=== PATIENT | female | born 1995 | race Two or more races ===

== ENCOUNTER 2016-10-06 16:55 | Emergency (ER) | payer SELFPAY ==
[~2016-10-06] VITALS: Ht 160 cm; Wt 59.0 kg
--- NOTE | 2016-10-06 17:00 | NUR ---
BIBSELF TO ED FOR RUQ ABDOMINAL PAIN, [place], 10/10 STARTED YESTERDAY NIGHT. PATIENT REPORTED NAUSEA AND VOMITTING X2. DENIES HEMATURIA NOR DYSURIA. SKIN IS WARM TO TOUCH AND NON DIAPHORETIC. AFEBRILE. VSS
[2016-10-06] MEDS ORDERED: IV NS 0.9% 1,000 ML BAG IV ONE (18:00)
[2016-10-06] MEDS ORDERED: MORPHINE SULFATE INJ 2 MG/ML DISP.SYRIN IV ONE ×2 (18:00→19:30)
[2016-10-06] MEDS ORDERED: ONDANSETRON HCL/PF - ER 4 MG/2 ML VIAL IV ONE ×2 (18:00→19:30)
[2016-10-06 18:06] LABS: BASOPHILS # (AUTO) 0.1 /CMM (0.0-0.2); BASOPHILS % (AUTO) 0.4 % (0.0-2.0); EOSINOPHILS # (AUTO) 0.1 /CMM (0.0-0.7); EOSINOPHILS % (AUTO) 0.8 % (0.0-6.0); HEMATOCRIT 44 % (33-45); HEMOGLOBIN 14.9 g/dL (11.5-14.8); LYMPHOCYTES # (AUTO) 3.1 /CMM (0.8-4.8); LYMPHOCYTES % (AUTO) 17.6 % (20.0-44.0); MEAN CORPUSCULAR HEMOGLOBIN 30 PG (26.0-33.0); MEAN CORPUSCULAR HGB CONC 33 g/dl (31.0-36.0); MEAN CORPUSCULAR VOLUME 90 fL (82-100); MONOCYTES # (AUTO) 0.9 /CMM (0.1-1.30); MONOCYTES % (AUTO) 5.2 % (2.0-12.0); NEUTROPHILS # (AUTO) 13.6 /CMM (1.8-8.9); PLATELET COUNT (AUTO) 428 /CMM (150-450); RDW COEFFICIENT OF VARIATION 12.5 (11.5-15.0); RED BLOOD CELL COUNT(AUTO) 4.92 MIL/uL (4.0-5.2); WHITE BLOOD COUNT (AUTO) 17.8 K/uL (4.3-11.0)
[2016-10-06] MEDS ORDERED: ONDANSETRON HCL/PF 4 MG/2 ML VIAL ONE ×2 (18:09→19:29)
[2016-10-06] MEDS ORDERED: MORPHINE SULFATE INJ 4 MG/ML DISP.SYRIN ONE ×2 (18:09→19:25)
[2016-10-06 18:13] LABS: CALCIUM, SERUM 8.5 mg/dL (8.5-10.1); POTASSIUM 3.3 mmol/L (3.5-5.1)
--- NOTE | 2016-10-06 18:14 | NUR ---
URINE SAMPLE COLLECTED
--- NOTE | 2016-10-06 18:15 | NUR ---
PT MEDICATED ORDERED
[2016-10-06 18:20] LABS: ALBUMIN 3.9 g/dL (3.4-5.0); BILIRUBIN,DIRECT 0.1 mg/dL (0.0-0.2); BILIRUBIN,TOTAL 0.4 mg/dL (0.2-1.0); TOTAL PROTEIN, SERUM 8.5 g/dL (6.4-8.2)
[2016-10-06 18:21] LABS: APPEARANCE,URINE Cloudy (CLEAR); BILIRUBIN,URINE Negative (NEGATIVE); BLOOD, URINE Large Ery/uL (NEGATIVE); COLOR,URINE Yellow (YELLOW); KETONES,URINE Negative (NEGATIVE); LEUKOCYTE ESTERASE ,URINE Trace (NEGATIVE); NITRITE, URINE Negative (NEGATIVE); PH,URINE 7.5 (5.0-8.0); PROTEIN,URINE Trace mg/dl (NEGATIVE); UGLUCOSE Negative (NEGATIVE); UROBILINOGEN,URINE 0.2 EU/dL (0.2)
[2016-10-06 18:22] LABS: PREGNANCY TEST URINE QUAL NEGATIVE (NEGATIVE)
[2016-10-06 18:35] LABS: BACTERIA,URINE Few /HPF (None Seen); RBC,URINE 21-50 /HPF (0-2); SQUAMOUS EPITHELIAL CELL,UR Moderate /HPF (None Seen)
[2016-10-06 18:36] LABS: HYALINE CASTS, URINE Rare /LPF (None Seen); URINE AMORPHOUS PHOSPHATES Moderate /HPF (None Seen)
--- NOTE | 2016-10-06 18:42 | NUR ---
PT TO RADIOLOGY FOR ABDOMINAL CT SCAN VIA [facility].
--- NOTE | 2016-10-06 19:19 | NUR ---
Assumed care of pt. Dr. Tracy at bedside for update on pt status. pt continues to have rt side abd pain. On continuous monitoring. Will medicate as ordered.
[2016-10-06] MEDS ORDERED: KETOROLAC TROMETHAMINE INJ 60 MG/2 ML VIAL IM ONE (19:30)
[2016-10-06] MEDS ORDERED: KETOROLAC TROMETHAMINE INJ 30 MG/ML VIAL ONE (19:44)
[2016-10-06] MEDS ORDERED: KETOROLAC TROMETHAMINE INJ 30 MG/ML VIAL IV ONE (20:00)
--- NOTE | 2016-10-06 20:05 | NUR ---
PT LYING IN BED W/ RESP EVEN & UNLABORED, DENIES ANY PAIN AT THIS TIME W/ NAD NOTED. ON CONTINUOUS MONITORING.
--- NOTE | 2016-10-06 20:45 | NUR ---
Dr. Tracy at bedside for update on pt status.
--- NOTE | 2016-10-06 20:51 | NUR ---
Patient ambulatory w/ steady gait, resp even & unlabored, nad noted. IV removed. Catheter intact and site benign. Pressure and 4x4 applied to site. No bleeding noted.Patient discharged to home in stable condition. Written and verbal after care instructions given. Patient verbalizes understanding of instruction.
[2016-10-06 20:52] VITALS: BP 110/60
== END 2016-10-06 20:52 | disposition home or self-care (01) ==
LOC: ER 16:58
DX: N13.2 Hydronephrosis with renal and ureteral calculous obstruction (principal); R31.29 Other microscopic hematuria
CPT/HCPCS: 36415; 74176; 80048; 80076; 81001; 83605; 83690; 84703; 85025; 87040 ×2; 96361; 96374; 96375; 96376; 99285; A4606; J1885; J2270 ×2; J2405 ×4; J7030; 71250-TC; 81000-TC; Z7610

== ENCOUNTER 2017-09-09 14:08 | Emergency (ER) | payer BC, MEDICAID ==
[~2017-09-09] VITALS: Ht 157.5 cm; Wt 61.7 kg
--- NOTE | 2017-09-09 14:15 | NUR ---
PT C/O LLQ ABD PAIN X 3DAYS. AAOX3, VSS. DENIES N/V, DIARRHEA. MARSII, LABOR RELATIONS TEACHER @ BS FOR EVAL. PT NAD NOTED @ THIS TIME.
--- NOTE | 2017-09-09 14:40 | NUR ---
BLANKET CUTTING MACHINE OPERATOR @ BS FOR BLOOD DRAW & URINE COLLECTED.
[2017-09-09 14:42] LABS: HEMATOCRIT 42 % (33-45); HEMOGLOBIN 14.8 g/dL (11.5-14.8); LYMPHOCYTES % (AUTO) 30.4 % (20.0-44.0); MEAN CORPUSCULAR HEMOGLOBIN 32 PG (26.0-33.0); MEAN CORPUSCULAR HGB CONC 36 g/dl (31.0-36.0); MEAN CORPUSCULAR VOLUME 90 fL (82-100); PLATELET COUNT (AUTO) 282 /CMM (150-450); RDW COEFFICIENT OF VARIATION 12.2 (11.5-15.0); WHITE BLOOD COUNT (AUTO) 8.8 K/uL (4.3-11.0)
[2017-09-09 14:43] LABS: BASOPHILS % (AUTO) 0.5 % (0.0-2.0); EOSINOPHILS % (AUTO) 1.2 % (0.0-6.0); LYMPHOCYTES # (AUTO) 2.7 /CMM (0.8-4.8); MONOCYTES # (AUTO) 0.5 /CMM (0.1-1.30); MONOCYTES % (AUTO) 5.9 % (2.0-12.0); NEUTROPHILS # (AUTO) 5.4 /CMM (1.8-8.9)
[2017-09-09 14:46] LABS: CALCIUM, SERUM 8.6 mg/dL (8.5-10.1); CREATININE 0.7 mg/dL (0.6-1.3); POTASSIUM 3.6 mmol/L (3.5-5.1)
[2017-09-09 15:10] LABS: APPEARANCE,URINE Clear (CLEAR); BILIRUBIN,URINE Negative (NEGATIVE); BLOOD, URINE Negative Ery/uL (NEGATIVE); COLOR,URINE Yellow (YELLOW); KETONES,URINE Trace (NEGATIVE); LEUKOCYTE ESTERASE ,URINE Negative (NEGATIVE); NITRITE, URINE Negative (NEGATIVE); PROTEIN,URINE Negative (NEGATIVE); UGLUCOSE Negative (NEGATIVE)
[2017-09-09 15:16] LABS: BACTERIA,URINE Rare /HPF (None Seen); SQUAMOUS EPITHELIAL CELL,UR Moderate /HPF (None Seen); WBC,URINE 0-3 /HPF (0-3)
[2017-09-09 16:35] VITALS: BP 115/70
== END 2017-09-09 15:55 | disposition home or self-care (01) ==
LOC: ER 14:12
DX: N83.202 Unspecified ovarian cyst, left side (principal)
CPT/HCPCS: 36415; 76770-TC; 76856-TC; 80048-TC; 81000-TC; 84703-TC; 85025-TC; A4606; A6402; Z7610

== ENCOUNTER 2018-05-14 00:09 | Emergency (ER) | payer MEDICAID ==
[~2018-05-14] VITALS: Ht 160 cm; Wt 59.0 kg
[2018-05-14] MEDS ORDERED: PHEN95TA15 (00:30)
--- NOTE | 2018-05-14 00:36 | NUR ---
URINE SAMPLE COLLECTED AND SENT TO LAB.
--- NOTE | 2018-05-14 00:42 | NUR ---
ER MD AT BEDSIDE TO EVAL PT WITH ORDERS RECEIVED.
[2018-05-14] MEDS ORDERED: ONDANSETRON HCL/PF 4 MG/2 ML VIAL ONE (00:59)
[2018-05-14] MEDS ORDERED: MORPHINE SULFATE INJ 2 MG/ML DISP.SYRIN ONE ×2 (00:59→02:46)
[2018-05-14] MEDS ORDERED: IV NS 0.9% 1,000 ML BAG IV ONE ×2 (01:00→03:00)
[2018-05-14] MEDS ORDERED: ONDANSETRON HCL/PF - ER 4 MG/2 ML VIAL IV ONE (01:00)
[2018-05-14] MEDS ORDERED: MORPHINE SULFATE INJ 2 MG/ML DISP.SYRIN IV ONE ×2 (01:00→03:00)
--- NOTE | 2018-05-14 01:04 | NUR ---
RN AT BEDSIDE TO MEDICATE PT.
[2018-05-14 01:05] LABS: BASOPHILS # (AUTO) 0.1 /CMM (0.0-0.2); BASOPHILS % (AUTO) 0.5 % (0.0-2.0); EOSINOPHILS % (AUTO) 1.4 % (0.0-6.0); HEMATOCRIT 41 % (33-45); HEMOGLOBIN 14.2 g/dL (11.5-14.8); LYMPHOCYTES # (AUTO) 2.2 /CMM (0.8-4.8); LYMPHOCYTES % (AUTO) 17.7 % (20.0-44.0); MEAN CORPUSCULAR HGB CONC 35 g/dl (31.0-36.0); MEAN CORPUSCULAR VOLUME 92 fL (82-100); MONOCYTES % (AUTO) 8.3 % (2.0-12.0); NEUTROPHILS % (AUTO) 72.1 % (43.0-81.0); PLATELET COUNT (AUTO) 246 /CMM (150-450); RED BLOOD CELL COUNT(AUTO) 4.42 MIL/uL (4.0-5.2); WHITE BLOOD COUNT (AUTO) 12.5 K/uL (4.3-11.0)
[2018-05-14 01:10] LABS: APPEARANCE,URINE SL CLOUDY (CLEAR); BILIRUBIN,URINE NEGATIVE (NEGATIVE); BLOOD, URINE 3+ Ery/uL (NEGATIVE); KETONES,URINE NEGATIVE (NEGATIVE); LEUKOCYTE ESTERASE ,URINE 3+ (NEGATIVE); NITRITE, URINE POSITIVE (NEGATIVE); PH,URINE 6.5 (5.0-8.0); PROTEIN,URINE 2+ mg/dl (NEGATIVE); UGLUCOSE TRACE mg/dL (NEGATIVE)
[2018-05-14 01:13] LABS: COLOR,URINE DARK YELLOW (YELLOW)
[2018-05-14 01:15] LABS: CALCIUM, SERUM 8.6 mg/dL (8.5-10.1); CREATININE 0.8 mg/dL (0.6-1.3); POTASSIUM 3.6 mmol/L (3.5-5.1)
[2018-05-14 01:21] LABS: ALBUMIN 3.9 g/dL (3.4-5.0); BILIRUBIN,DIRECT 0.1 mg/dL (0.0-0.2); BILIRUBIN,TOTAL 0.7 mg/dL (0.2-1.0); TOTAL PROTEIN, SERUM 7.3 g/dL (6.4-8.2)
[2018-05-14 01:23] LABS: RBC,URINE 21-50 /HPF (0-2)
[2018-05-14 01:24] LABS: BACTERIA,URINE Many /HPF (None Seen); SQUAMOUS EPITHELIAL CELL,UR Many /HPF (None Seen)
[2018-05-14 01:25] LABS: WBC,URINE 81-100 /HPF (0-3)
[2018-05-14] MEDS ORDERED: CEFTRIAXONE 1 G in IV D5W 50 ML IV ONE (02:00)
[2018-05-14] MEDS ORDERED: CEFTRIAXONE 1GM BAG (ER ONLY) 50 ML IV ONE (02:18)
--- NOTE | 2018-05-14 02:44 | NUR ---
NOW PT C/O SEVERE ABDOMINAL PAIN 11/24. ER MADE AWARE.
[2018-05-14] MEDS ORDERED: KETOROLAC TROMETHAMINE INJ 30 MG/ML VIAL ONE (02:46)
--- NOTE | 2018-05-14 02:49 | NUR ---
RN AT BEDSIDE TO MEDICATE PT.
[2018-05-14] MEDS ORDERED: KETOROLAC TROMETHAMINE INJ 30 MG/ML VIAL IV ONE (03:00)
--- NOTE | 2018-05-14 03:16 | NUR ---
PT ASLEEP, NO ACUTE DISTRESS NOTED, RESP EVEN AND UNLABORED.
--- NOTE | 2018-05-14 04:10 | NUR ---
CALLED [facility] FOR PENDING CT ABD/PELVIS
--- NOTE | 2018-05-14 05:38 | NUR ---
IV removed. Catheter intact and site benign. Pressure and 4x4 applied to site. No bleeding noted.
--- NOTE | 2018-05-14 05:38 | NUR ---
Patient discharged to home in stable condition. Written and verbal after care instructions given. Patient verbalizes understanding of instruction.
[2018-05-14 05:40] VITALS: BP 135/80
== END 2018-05-14 05:42 | disposition home or self-care (01) ==
LOC: ER 00:18
DX: N12 Tubulo-interstitial nephritis, not specified as acute or chronic (principal); E86.0 Dehydration; N83.201 Unspecified ovarian cyst, right side; Z87.442 Personal history of urinary calculi
CPT/HCPCS: 36415; 74176; 80048; 80076; 81001; 83690; 84702; 85025; 87077; 87086; 87186; 96361; 96365; 96375; 96376; 99284; J0696; J1885; J2270 ×2; J2405; J7030 ×2; 81000-TC; J7060

== ENCOUNTER 2018-07-04 19:52 | Emergency (ER) ==
[~2018-07-04] VITALS: Ht 157.5 cm; Wt 61.2 kg
[~2018-07-04 19:52] MED LIST: PHEN95TA15
--- NOTE | 2018-07-04 20:14 | NUR ---
6 WEEKS PREG AND BRIGHT RED VB WITH URINATION X30MIN, -PAIN, "IT LOOKED LIKE MUCOUS". PT IS AMBULATORY, AOX4, VSS, RR EVEN AND UNLABORED ON RA. NO ACUTE DISTRESS NOTED. READY FOR EVAL.
[2018-07-04 21:02] LABS: APPEARANCE,URINE Clear (CLEAR); BILIRUBIN,URINE Negative (NEGATIVE); BLOOD, URINE Small Ery/uL (NEGATIVE); COLOR,URINE Yellow (YELLOW); KETONES,URINE Negative (NEGATIVE); LEUKOCYTE ESTERASE ,URINE Negative (NEGATIVE); NITRITE, URINE Negative (NEGATIVE); PROTEIN,URINE Negative (NEGATIVE); UGLUCOSE Negative (NEGATIVE); UROBILINOGEN,URINE 0.2 EU/dL (0.2)
[2018-07-04 21:03] LABS: BASOPHILS # (AUTO) 0.1 /CMM (0.0-0.2); BASOPHILS % (AUTO) 0.6 % (0.0-2.0); EOSINOPHILS % (AUTO) 1.7 % (0.0-6.0); HEMATOCRIT 40 % (33-45); HEMOGLOBIN 14.2 g/dL (11.5-14.8); LYMPHOCYTES # (AUTO) 2.8 /CMM (0.8-4.8); LYMPHOCYTES % (AUTO) 26.8 % (20.0-44.0); MEAN CORPUSCULAR HGB CONC 36 g/dl (31.0-36.0); MEAN CORPUSCULAR VOLUME 91 fL (82-100); MONOCYTES # (AUTO) 0.8 /CMM (0.1-1.30); MONOCYTES % (AUTO) 8.2 % (2.0-12.0); NEUTROPHILS # (AUTO) 6.5 /CMM (1.8-8.9); NEUTROPHILS % (AUTO) 62.7 % (43.0-81.0); PLATELET COUNT (AUTO) 278 /CMM (150-450); RED BLOOD CELL COUNT(AUTO) 4.34 MIL/uL (4.0-5.2); WHITE BLOOD COUNT (AUTO) 10.4 K/uL (4.3-11.0)
[2018-07-04 21:09] LABS: CALCIUM, SERUM 8.8 mg/dL (8.5-10.1); CREATININE 0.9 mg/dL (0.6-1.3); POTASSIUM 3.7 mmol/L (3.5-5.1)
--- NOTE | 2018-07-04 22:18 | NUR ---
Patient is resting comfortably in bed with eyes closed. Easily aroused. VSS
--- NOTE | 2018-07-04 23:01 | NUR ---
CALLED LAB REGARDING MICRO UA. INFORMED ME THAT IT IS BEING PROCESSED
[2018-07-04 23:15] LABS: BACTERIA,URINE Few /HPF (None Seen); RBC,URINE 0-2 /HPF (0-2); SQUAMOUS EPITHELIAL CELL,UR Rare /HPF (None Seen); WBC,URINE 0-2 /HPF (0-3)
--- NOTE | 2018-07-04 23:24 | NUR ---
Patient discharged to home in stable condition. Written and verbal after care instructions given. Patient verbalizes understanding of instruction.
[2018-07-04 23:25] VITALS: BP 115/82
== END 2018-07-04 23:28 | disposition home or self-care (01) ==
LOC: ER 19:59
DX: O20.0 Threatened abortion (principal)
CPT/HCPCS: 36415; 76856-TC; 80048-TC; 81000-TC; 84702-TC; 85025-TC; 85730-TC

== ENCOUNTER 2018-08-05 14:11 | Emergency (ER) | payer SELFPAY ==
[~2018-08-05] VITALS: Ht 165.1 cm; Wt 60.8 kg
--- NOTE | 2018-08-05 14:30 | NUR ---
Vaginal bleeding 6-7pads/day since miscarriage 4 days ago. . C/O INTERMITTENT ABDOMINAL CRAMPING, TAKES IBUPROFEN FOR PAIN. ALSO CONTINUES TO PASS CLOTS. FAMILY AT BEDSIDE. MADE COMFORTABLE AND READY FOR EVAL.
[2018-08-05 14:52] LABS: BASOPHILS % (AUTO) 0.7 % (0.0-2.0); EOSINOPHILS % (AUTO) 1.5 % (0.0-6.0); HEMATOCRIT 38 % (33-45); HEMOGLOBIN 13.5 g/dL (11.5-14.8); LYMPHOCYTES # (AUTO) 1.8 /CMM (0.8-4.8); LYMPHOCYTES % (AUTO) 23.7 % (20.0-44.0); MEAN CORPUSCULAR HGB CONC 36 g/dl (31.0-36.0); MEAN CORPUSCULAR VOLUME 91 fL (82-100); MONOCYTES # (AUTO) 0.4 /CMM (0.1-1.30); MONOCYTES % (AUTO) 4.9 % (2.0-12.0); NEUTROPHILS # (AUTO) 5.2 /CMM (1.8-8.9); NEUTROPHILS % (AUTO) 69.2 % (43.0-81.0); PLATELET COUNT (AUTO) 279 /CMM (150-450); RED BLOOD CELL COUNT(AUTO) 4.13 MIL/uL (4.0-5.2); WHITE BLOOD COUNT (AUTO) 7.4 K/uL (4.3-11.0)
--- NOTE | 2018-08-05 14:52 | NUR ---
GOPHERMAN AT BEDSIDE
[2018-08-05] MEDS ORDERED: IV NS 0.9% 1,000 ML BAG IV ONE (15:00)
--- NOTE | 2018-08-05 15:35 | NUR ---
SAMUEL BAUTISTA AT BEDSIDE FOR PELVIC EXAM
--- NOTE | 2018-08-05 15:45 | NUR ---
URINE SENT TO STAT LAB
[2018-08-05 16:17] LABS: APPEARANCE,URINE Clear (CLEAR); BILIRUBIN,URINE Negative (NEGATIVE); BLOOD, URINE Moderate Ery/uL (NEGATIVE); COLOR,URINE Yellow (YELLOW); KETONES,URINE Negative (NEGATIVE); LEUKOCYTE ESTERASE ,URINE Negative (NEGATIVE); NITRITE, URINE Negative (NEGATIVE); PROTEIN,URINE Negative (NEGATIVE); UGLUCOSE Negative (NEGATIVE)
[2018-08-05 16:21] LABS: UROBILINOGEN,URINE 0.2 EU/dL (0.2)
--- NOTE | 2018-08-05 16:32 | NUR ---
IV removed. Catheter intact and site benign. Pressure and 4x4 applied to site. No bleeding noted.Patient discharged to home in stable condition. Written and verbal after care instructions given. Patient verbalizes understanding of instruction.
[2018-08-05 16:33] VITALS: BP 102/64
== END 2018-08-05 16:33 | disposition home or self-care (01) ==
LOC: ER 14:11
DX: O03.9 Complete or unspecified spontaneous abortion without complication (principal)
CPT/HCPCS: 36415; 76856; 81001; 84702; 85025; 99284; A6403; J7030; 81000-TC

== ENCOUNTER 2019-03-09 15:46 | Emergency (ER) | payer MEDICAID ==
[~2019-03-09] VITALS: Ht 157.5 cm; Wt 59.0 kg
--- NOTE | 2019-03-09 17:16 | NUR ---
PT AAOX4. AMBULATORY. BIBSELF. C/O HIVES X 1 WEEK. HVIES NOTED ON EXTREMETIES AND NECK. AWAITING MD FOR EVAL. VSS. NO ACUTE DISTRESS NOTED.
[2019-03-09] MEDS ORDERED: FAMOTIDINE (20 MG) 20 MG TABLET ONE (17:48)
[2019-03-09] MEDS ORDERED: predniSONE 20 MG TABLET ONE (17:48)
[2019-03-09] MEDS ORDERED: FAMOTIDINE (20 MG) 20 MG TABLET PO ONE (18:00)
[2019-03-09] MEDS ORDERED: predniSONE 20 MG TABLET PO ONE (18:00)
--- NOTE | 2019-03-09 18:04 | NUR ---
MEDS GIVEN, VSS. NO ACUTE DISTRESS NOTED.
[2019-03-09 18:16] VITALS: BP 108/72
--- NOTE | 2019-03-09 18:16 | NUR ---
Patient discharged to home in stable condition. Written and verbal after care instructions given. Patient verbalizes understanding of instruction and RX. PT ambulatory with a steady gait.
== END 2019-03-09 18:17 | disposition home or self-care (01) ==
LOC: ER 15:48
DX: L23.9 Allergic contact dermatitis, unspecified cause (principal)
CPT/HCPCS: 99283; J7512

== ENCOUNTER 2019-05-28 04:05 | Inpatient (IN) | payer SELFPAY ==
[~2019-05-28] VITALS: Ht 162.6 cm; Wt 61.7 kg
--- NOTE | 2019-05-28 04:10 | NUR ---
URINE SPECIMEN COLLECTED AND SENT TO LAB.
[2019-05-28] MEDS ORDERED: ACETAMINOPHEN 325 MG TABLET ONE (04:24)
[2019-05-28] MEDS ORDERED: ACETAMINOPHEN 325 MG TABLET PO ONE (04:30)
--- NOTE | 2019-05-28 04:31 | NUR ---
BRIAN FROM HOME TO ER BED 16. AAOX4. NOT IN RESP DISTRESS. AMBULTORY. C/O L LOWER QUAD ABD PAIN SINCE 0. PT RATES HER PAIN 8/10. DENIES NAUSEA NOR VOMITING. MD WAS AT BEDSIDE FOR EVAL. ORDERS RECEIVED NOTED AND CARRIED OUT.
[2019-05-28 04:34] LABS: APPEARANCE,URINE Clear (CLEAR); BILIRUBIN,URINE Negative (NEGATIVE); BLOOD, URINE Trace-intact Ery/uL (NEGATIVE); KETONES,URINE Negative (NEGATIVE); LEUKOCYTE ESTERASE ,URINE Small (NEGATIVE); NITRITE, URINE Negative (NEGATIVE); PROTEIN,URINE 30 mg/dl (NEGATIVE); UGLUCOSE Negative (NEGATIVE); UROBILINOGEN,URINE 0.2 EU/dL (0.2)
[2019-05-28 04:35] LABS: COLOR,URINE YELLOW (YELLOW)
[2019-05-28 04:53] LABS: WBC,URINE TOO NUMEROUS TO COUN /HPF (0-3)
[2019-05-28 04:54] LABS: BACTERIA,URINE Few /HPF (None Seen); SQUAMOUS EPITHELIAL CELL,UR Few /HPF (None Seen)
--- NOTE | 2019-05-28 05:21 | NUR ---
TALKING TO PT AT BEDSIDE.
[2019-05-28] MEDS ORDERED: CEFEPIME 1 GM VIAL ONE (05:23)
[2019-05-28 05:26] LABS: BASOPHILS # (AUTO) 0.1 /CMM (0.0-0.2); BASOPHILS % (AUTO) 0.6 % (0.0-2.0); EOSINOPHILS % (AUTO) 0.9 % (0.0-6.0); HEMATOCRIT 35 % (33-45); HEMOGLOBIN 12.3 g/dL (11.5-14.8); LYMPHOCYTES # (AUTO) 2.5 /CMM (0.8-4.8); LYMPHOCYTES % (AUTO) 18.3 % (20.0-44.0); MEAN CORPUSCULAR HGB CONC 35 g/dl (31.0-36.0); MEAN CORPUSCULAR VOLUME 91 fL (82-100); MONOCYTES # (AUTO) 0.8 /CMM (0.1-1.30); MONOCYTES % (AUTO) 5.9 % (2.0-12.0); NEUTROPHILS # (AUTO) 10.2 /CMM (1.8-8.9); NEUTROPHILS % (AUTO) 74.3 % (43.0-81.0); PLATELET COUNT (AUTO) 252 /CMM (150-450); RED BLOOD CELL COUNT(AUTO) 3.86 MIL/uL (4.0-5.2); WHITE BLOOD COUNT (AUTO) 13.8 K/uL (4.3-11.0)
[2019-05-28 05:28] LABS: CALCIUM, SERUM 8.7 mg/dL (8.5-10.1); CREATININE 0.6 mg/dL (0.6-1.3); POTASSIUM 3.6 mmol/L (3.5-5.1)
--- NOTE | 2019-05-28 05:28 | NUR ---
LEONIDAS AHN SPOKE TO MANISHA MONK
[2019-05-28] MEDS ORDERED: CEFEPIME 1 GM in IV D5W 50 ML IV ONE (05:30)
[2019-05-28] MEDS ORDERED: AZTREONAM 1 G in IV NS 0.9% 100 ML IV ONE (05:30)
[2019-05-28] MEDS ORDERED: IV NS 0.9% 1,000 ML IV PRN (05:30)
--- NOTE | 2019-05-28 05:36 | NUR ---
US AT BEDSIDE
[2019-05-28] MEDS ORDERED: AZTREONAM 1 G VIAL ONE ×3 (05:39→22:20)
--- NOTE | 2019-05-28 06:04 | NUR ---
ER SPOKE TO ROCIO GILMORE REGARDING PT ADMISSION.
--- NOTE | 2019-05-28 06:27 | NUR ---
Pt ambulated to restroom.
[2019-05-28] MEDS ORDERED: Z GUARD REMEDY 2 OZ OINT TP PRN (06:30)
--- NOTE | 2019-05-28 06:46 | NUR ---
REPORT GIVEN TO HINA BRODY FOR MICHELLE
--- NOTE | 2019-05-28 07:28 | NUR ---
PT TRANSPORTED TO UNIT ON WHEELCHAIR WITH RN AT BEDSIDE. NAD NOTED DURING TRANSPORT. PT IS STABLE
--- NOTE | 2019-05-28 07:54 | NUR ---
MS/RN NOTE THE PATIENT IS RECEIVED FROM ER ON A W/CHAIR THE PATIENT IS ASSISTED TO BED PATIENT IS ALERT AND ORIENTED IN ROOM AIR AND DENIES SOB. RESPIRATION REGULAR AND UNLABORED. COMPLAINS OF LEFT LOWER BACK PAIN 2/10 BUT DOES NOT WANT ANY PAIN MEDICATION. THE PATIENT REPORTS BEING 15 WEEKS . REFUSES SKIN ASSESSMENT. LAC G 20 PATENT AND SALINE LOCKED. BED LOW AND LOCKED. SIDE RAILS UP X3. CALL LIGHT WITHIN REACH. WILL CONTINUE TO MONITOR.
[2019-05-28] MEDS: IV NS 0.9% 1,000 ML IV PRN (08:28)
[2019-05-28 09:00] VITALS: BP 92/45
[2019-05-28 16:00] VITALS: BP 96/52
--- NOTE | 2019-05-28 18:36 | NUR ---
MS/RN NOTE THE PATIENT IS ALERT AND ORIENTED X4. IN ROOM AIR AND SATURATION IS AT 98%. DENIES SOB. RESPIRATION REGULAR AND UNLABORED. DENIES PAIN. THE PATIENT IN NO APPARENT DISTRESS. LAC G 20 PATENT AND NS INFUSING AT 75ML/HR AND NO S/S INFILTRATION NOTED. BED LOW AND LOCKED. SIDE RAILS UP X3. CALL LIGHT WITHIN REACH. WILL ENDORSE TO TELESALES AGENT.
[2019-05-28 19:52] VITALS: BP 102/56
[2019-05-28 20:00] VITALS: BP 102/56
--- NOTE | 2019-05-28 20:00 | NUR ---
RN MS OPENING NOTES RECEIVED PATIENT IN BE AWAKE ALERT AND ORIENTED X4, RESPIRATIONS EVEN AND UNLABORED WITH EQUAL RISE AND FALL OF CHEST, DENIES ANY PAIN OR DISCOMFORT AT THIS TIME, IV SITE TO LEFT AC #20 G INTACT AND PATENT, AT THIS TIME PT REQUEST TO HAVE IVF OFF STATES " IM DRINKING WATER". ORIENTED TO STAFF AND CALL LIGHT AND KEPT WITHIN REACH SAFETY PRECAUTIONS IN PLACE, LOW BED AND LOCKED, ALL NEEDS ATTENDED WILL CONTINUE TO MONITOR.
[2019-05-28] MEDS ORDERED: AZTREONAM 1 G VIAL IM SCH (21:00)
[2019-05-28] MEDS: AZTREONAM 1 G in IV NS 0.9% 100 ML IV SCH (22:47)
[2019-05-29] MEDS: IV NS 0.9% 1,000 ML IV PRN (05:11)
[2019-05-29] MEDS: AZTREONAM 1 G in IV NS 0.9% 100 ML IV SCH ×2 (05:11→13:07)
--- NOTE | 2019-05-29 06:21 | NUR ---
RN MS CLOSING NOTES PATIENT IN BE AWAKE ALERT AND ORIENTED X4, RESPIRATIONS EVEN AND UNLABORED WITH EQUAL RISE AND FALL OF CHEST, DENIES ANY PAIN OR DISCOMFORT AT THIS TIME, IV SITE TO LEFT AC #20 G INTACT AND PATENT, IVF RUNNING ORDERED. CALL LIGHT KEPT WITHIN REACH SAFETY PRECAUTIONS IN PLACE, LOW BED AND LOCKED, ALL NEEDS ATTENDED WILL CONTINUE TO MONITOR AND ATTEND TO NEEDS, ALL MEDS DUE ORDERED NO ADVERSE REACTION PRESENT.
[2019-05-29 06:58] LABS: BASOPHILS % (AUTO) 0.4 % (0.0-2.0); EOSINOPHILS % (AUTO) 1.9 % (0.0-6.0); HEMATOCRIT 33 % (33-45); HEMOGLOBIN 11.5 g/dL (11.5-14.8); LYMPHOCYTES # (AUTO) 2.1 /CMM (0.8-4.8); LYMPHOCYTES % (AUTO) 24.8 % (20.0-44.0); MEAN CORPUSCULAR HGB CONC 35 g/dl (31.0-36.0); MEAN CORPUSCULAR VOLUME 91 fL (82-100); MONOCYTES # (AUTO) 0.6 /CMM (0.1-1.30); NEUTROPHILS # (AUTO) 5.5 /CMM (1.8-8.9); NEUTROPHILS % (AUTO) 65.9 % (43.0-81.0); PLATELET COUNT (AUTO) 237 /CMM (150-450); RED BLOOD CELL COUNT(AUTO) 3.58 MIL/uL (4.0-5.2); WHITE BLOOD COUNT (AUTO) 8.3 K/uL (4.3-11.0)
[2019-05-29 07:18] LABS: CALCIUM, SERUM 7.8 mg/dL (8.5-10.1); CREATININE 0.5 mg/dL (0.6-1.3); MAGNESIUM 1.7 mg/dL (1.8-2.4); PHOSPHORUS 4.1 mg/dL (2.5-4.9); POTASSIUM 3.8 mmol/L (3.5-5.1)
[2019-05-29 07:31] LABS: THYROID STIMULATING HORMONE 1.85 uIU/mL (0.358-3.74)
[2019-05-29 08:00] VITALS: BP 100/60
--- NOTE | 2019-05-29 08:00 | NUR ---
MS RN OPENING NOTE RECEIVED PT IN BED AWAKE ALERT AND ORIENTED X4, NO CARDIAC OR RESP DISTRESS NOTED. NO SOB NOTED. RESPIRATIONS EVEN AND UNLABORED., DENIES ANY PAIN OR DISCOMFORT AT THIS TIME, IV SITE TO LEFT AC #20 G INTACT AND PATENT, IVF RUNNING ORDERED WITH NS AT 75ML/HR. TOLERATING IV FLUIDS WELL. . CALL LIGHT KEPT WITHIN REACH SAFETY PRECAUTIONS IN PLACE, LOW BED AND LOCKED,WILL CONTINUE TO MONITOR
[2019-05-29] MEDS ORDERED: CEPH-570 PO (10:57)
[2019-05-29] MEDS ORDERED: Magnesium 1GM/D5W 100ML PREMIX 100 ML IV SCH (11:30)
--- NOTE | 2019-05-29 15:40 | NUR ---
D/C HOME PT DISCHARGED HOME TODAY. IN STABLE CONDITION. PT REFUSED BODY CHECK/ASSESSMENT. NO CARDIAC OR RESP DISTRESS NOTED. NO COMPLAINTS OF PAIN OR DISCOMFORT. IV ACCESS REMOVED ON L AC. NO BLEEDING NOTED. TOLERATED WELL. D/C INSTRUCTIONS GIVEN WELL D/C PAPERWORKS. .ALL BELONGINGS SEND WITH PT. INVENTORY SIGNED. PRESCRIPTIONS WERE ALSO BROUGHT BY PT AND WAS INSTRUCTED TO GO TO THE NEAREST PHARMACY TOPICK UP MEDS. INSTRUCTED PT TO F/U WITH PRIMARY PHYSICIAN IN 1 WEEK. PT AGREED. VS STABLE. PT WAS PICKED UP BY PRIVATE CAR AND STATED THAT HER BOYFRIEND WILL BE PICKING HER UP DOWNSTAIRS.
== END 2019-05-29 15:40 | disposition home or self-care (01) | DRG 832 ==
LOC: ER 04:06 → MED 06:41
PROVIDERS: ADMIT Internal Medicine; ATTEND Internal Medicine
DX: O23.42 Unspecified infection of urinary tract in pregnancy, second trimester (principal); E87.1 Hypo-osmolality and hyponatremia; Z3A.15 15 weeks gestation of pregnancy; Z87.442 Personal history of urinary calculi; E86.1 Hypovolemia; B96.89 Other specified bacterial agents as the cause of diseases classified elsewhere; N20.0 Calculus of kidney; O99.282 Endocrine, nutritional and metabolic diseases complicating pregnancy, second trimester; O26.892 Other specified pregnancy related conditions, second trimester
CPT/HCPCS: 36415; 76770-TC; 76805-TC; 80048-TC; 80061-TC; 81000-TC; 83735-TC; 84100-TC; 84443-TC; 84702-TC; 85025-TC; 87081-TC; 87086-TC; 87186-TC; A4216; G0378; J0692; J3475; J3490; J7030; J7060